=== PATIENT | male | born 1960 | race Caucasian/White ===

== ENCOUNTER 2017-10-07 16:31 | Emergency (ER) | payer OTHER ==
[~2017-10-07] VITALS: Ht 185.4 cm; Wt 115.0 kg
[2017-10-07] MEDS ORDERED: AUGMENTIN875 MG PO (18:14)
[2017-10-07 19:38] VITALS: BP 138/7
== END 2017-10-07 19:39 | disposition home or self-care (01) ==
LOC: EME 16:31
DX: S81.831A Puncture wound without foreign body, right lower leg, initial encounter (principal); W54.0XXA Bitten by dog, initial encounter; Y93.55 Activity, bike riding; Z23 Encounter for immunization; Z20.3 Contact with and (suspected) exposure to rabies; Z29.14 Encounter for prophylactic rabies immune globulin; I10 Essential (primary) hypertension
CPT/HCPCS: 99281; 99283

== ENCOUNTER 2017-10-10 07:22 | Emergency (ER) | payer OTHER ==
[~2017-10-10] VITALS: Ht 182.9 cm; Wt 114.5 kg
[~2017-10-10 07:22] MED LIST: AUGMENTIN875 MG PO
[2017-10-10 08:57] VITALS: BP 134/94
== END 2017-10-10 08:50 | disposition home or self-care (01) ==
LOC: EME 07:22
PROC: 3E0234Z Introduction of Serum, Toxoid and Vaccine into Muscle, Percutaneous Approach (ICD-10-PCS; principal; 2017-10-10)
DX: Z20.3 Contact with and (suspected) exposure to rabies (principal); Z23 Encounter for immunization; W54.0XXA Bitten by dog, initial encounter; I10 Essential (primary) hypertension
CPT/HCPCS: 99281; 99283

== ENCOUNTER 2017-10-14 07:09 | Emergency (ER) | payer OTHER ==
[~2017-10-14] VITALS: Ht 182.9 cm; Wt 114.5 kg
[2017-10-14 08:20] VITALS: BP 161/86
== END 2017-10-14 08:20 | disposition home or self-care (01) ==
LOC: EME 07:09
PROC: 3E0234Z Introduction of Serum, Toxoid and Vaccine into Muscle, Percutaneous Approach (ICD-10-PCS; principal; 2017-10-14)
DX: Z23 Encounter for immunization (principal); Z20.3 Contact with and (suspected) exposure to rabies
CPT/HCPCS: 99281; 99283

== ENCOUNTER 2017-10-21 12:29 | Emergency (ER) | payer OTHER ==
[~2017-10-21] VITALS: Ht 182.9 cm; Wt 114.4 kg
[2017-10-21 13:49] VITALS: BP 131/80
== END 2017-10-21 14:08 | disposition home or self-care (01) ==
LOC: EME 12:29
PROC: 3E0234Z Introduction of Serum, Toxoid and Vaccine into Muscle, Percutaneous Approach (ICD-10-PCS; principal; 2017-10-21)
DX: Z20.3 Contact with and (suspected) exposure to rabies (principal); Z23 Encounter for immunization
CPT/HCPCS: 99281; 99283